=== PATIENT | male | born 1950 | race Caucasian/White ===

== ENCOUNTER 2019-03-24 11:36 | Emergency (ER) | payer OTHER ==
[~2019-03-24] VITALS: Ht 175.3 cm; Wt 74.4 kg
[2019-03-24 11:39] VITALS: Ht 175.3 cm; Wt 74.4 kg
[2019-03-24 14:24] VITALS: BP 132/74
== END 2019-03-24 14:24 | disposition home or self-care (01) ==
LOC: ED 11:36
DX: S43.005A Unspecified dislocation of left shoulder joint, initial encounter (principal); I10 Essential (primary) hypertension; W01.0XXA Fall on same level from slipping, tripping and stumbling without subsequent striking against object, initial encounter; Y93.89 Activity, other specified; Y92.89 Other specified places as the place of occurrence of the external cause; Y99.8 Other external cause status
CPT/HCPCS: J2704; J3010